=== PATIENT | female | born 1975 | race Caucasian/White ===

== ENCOUNTER 2017-05-28 12:39 | Emergency (ER) | payer MEDICAID, MEDICARE, SELFPAY ==
[2017-05-28] MEDS ORDERED: Morphine 10 MG/ML VIAL ONE (12:56)
--- NOTE | 2017-05-28 13:26 | RAD ---
TWO VIEWS OF THE LEFT HIP: Clinical history: Left hip pain. FINDINGS: There is joint space narrowing and osteophytosis of the left hip. There is subchondral cyst formation . No fracture or dislocation. IMPRESSION: Mild osteoarthritis of the left hip. POS: REX
== END 2017-05-28 13:40 | disposition home or self-care (01) ==
LOC: SCSER 12:39
DX: M16.12 Unilateral primary osteoarthritis, left hip (principal); E11.9 Type 2 diabetes mellitus without complications; E78.5 Hyperlipidemia, unspecified; E03.9 Hypothyroidism, unspecified; G43.909 Migraine, unspecified, not intractable, without status migrainosus; F17.210 Nicotine dependence, cigarettes, uncomplicated; Z79.899 Other long term (current) drug therapy; Z71.6 Tobacco abuse counseling
CPT/HCPCS: 96372; 99406; J2270

== ENCOUNTER 2018-11-16 10:22 | Emergency (ER) | payer SELFPAY ==
[2018-11-16] MEDS ORDERED: Ketorolac Tromethamine 30 MG/ML VIAL ONE (10:36)
== END 2018-11-16 10:43 | disposition home or self-care (01) ==
LOC: SCSER 10:22
DX: H60.91 Unspecified otitis externa, right ear (principal); E11.9 Type 2 diabetes mellitus without complications; E78.5 Hyperlipidemia, unspecified; E03.9 Hypothyroidism, unspecified; G43.909 Migraine, unspecified, not intractable, without status migrainosus; F41.9 Anxiety disorder, unspecified; F31.9 Bipolar disorder, unspecified; F17.210 Nicotine dependence, cigarettes, uncomplicated; Z79.84 Long term (current) use of oral hypoglycemic drugs; Z79.899 Other long term (current) drug therapy
CPT/HCPCS: 96372; 99282; J1885

== ENCOUNTER 2019-12-12 21:24 | Emergency (ER) | payer SELFPAY ==
[2019-12-12] MEDS ORDERED: Ketorolac Tromethamine 30 MG/ML VIAL ONE (21:50)
--- NOTE | 2019-12-12 21:50 | RAD ---
EXAM: 3 views of the left ankle HISTORY: Ankle pain COMPARISON: None FINDINGS: 3 views of the left ankle shows no evidence of acute fracture or dislocation. Mild diffuse soft tissue swelling is seen. No degenerative changes are present. IMPRESSION: No evidence of acute osseous abnormality.
--- NOTE | 2019-12-12 21:50 | RAD ---
EXAM: 3 views of the left foot HISTORY: Foot pain COMPARISON: None FINDINGS: 3 views of the left foot shows no evidence of acute fracture or dislocation. Mild diffuse s oft tissue swelling is seen. No degenerative changes are present. IMPRESSION: No evidence of acute osseous abnormality.
== END 2019-12-12 22:51 | disposition home or self-care (01) ==
LOC: ERS 21:24
DX: S93.402A Sprain of unspecified ligament of left ankle, initial encounter (principal); E11.9 Type 2 diabetes mellitus without complications; E78.5 Hyperlipidemia, unspecified; E03.9 Hypothyroidism, unspecified; F17.210 Nicotine dependence, cigarettes, uncomplicated; X58.XXXA Exposure to other specified factors, initial encounter
CPT/HCPCS: 96372; J1885

== ENCOUNTER 2022-04-09 12:35 | Emergency (ER) | payer SELFPAY ==
[2022-04-09] MEDS ORDERED: Ketorolac Tromethamine 30 MG/ML VIAL ONE (15:45)
== END 2022-04-09 16:04 | disposition home or self-care (01) ==
LOC: ERS 12:35
DX: M54.12 Radiculopathy, cervical region (principal); K21.9 Gastro-esophageal reflux disease without esophagitis; F17.210 Nicotine dependence, cigarettes, uncomplicated
CPT/HCPCS: 96372; J1885

== ENCOUNTER 2023-11-01 13:35 | Outpatient (CLI) | payer BC | END 2023-11-01 13:36 | disposition home or self-care (01) | LOC: BICRAD 13:35 | PROVIDERS: ATTEND Physician Assistant | DX: Z87.81 Personal history of (healed) traumatic fracture (principal); M51.34 Other intervertebral disc degeneration, thoracic region | CPT/HCPCS: 72072 ==

== ENCOUNTER 2024-02-26 14:59 | Outpatient (CLI) | payer BC | END 2024-02-26 15:00 | disposition home or self-care (01) | LOC: BICULT 14:59 | PROVIDERS: ATTEND Advanced Practice Midwife | DX: R10.2 Pelvic and perineal pain (principal) | CPT/HCPCS: 76856; 93976 ==

== ENCOUNTER 2024-11-10 09:33 | Outpatient (CLI) | payer BC | END 2024-11-10 09:34 | disposition home or self-care (01) | LOC: SCSMRI 09:33 → BICMRI 09:34 | PROVIDERS: ATTEND Physician Assistant | DX: M51.34 Other intervertebral disc degeneration, thoracic region (principal); M47.814 Spondylosis without myelopathy or radiculopathy, thoracic region; M51.24 Other intervertebral disc displacement, thoracic region | CPT/HCPCS: 72146 ==

== ENCOUNTER 2025-02-09 13:07 | Outpatient (CLI) | payer BC | END 2025-02-09 13:08 | disposition home or self-care (01) | LOC: SCSMRI 13:07 | PROVIDERS: ATTEND Surgery | DX: M54.12 Radiculopathy, cervical region (principal); M48.02 Spinal stenosis, cervical region; M48.03 Spinal stenosis, cervicothoracic region | CPT/HCPCS: 72141 ==

== ENCOUNTER 2025-02-09 14:01 | Outpatient (CLI) | payer BC | END 2025-02-09 14:02 | disposition home or self-care (01) | LOC: SCSRAD 14:01 | PROVIDERS: ATTEND Surgery | DX: M47.22 Other spondylosis with radiculopathy, cervical region (principal); R20.2 Paresthesia of skin | CPT/HCPCS: 72050 ==

== ENCOUNTER 2025-03-29 10:08 | Outpatient (CLI) | payer OTHER | END 2025-03-29 10:09 | disposition home or self-care (01) | LOC: BICCT 10:08 | PROVIDERS: ATTEND Physician Assistant Medical | DX: Z13.6 Encounter for screening for cardiovascular disorders (principal); R00.0 Tachycardia, unspecified; K44.9 Diaphragmatic hernia without obstruction or gangrene; Z90.3 Acquired absence of stomach [part of]; I25.10 Atherosclerotic heart disease of native coronary artery without angina pectoris | CPT/HCPCS: 75571 ==